=== PATIENT | male | born 1980 | race Caucasian/White ===

== ENCOUNTER 2021-05-31 07:42 | Emergency (ER) | payer SELFPAY ==
[2021-05-31 19:56] LABS: SARS-CoV-2 PCR by NAA Not Detected (NotDetected)
== END 2021-05-31 11:04 | disposition home or self-care (01) ==
LOC: BURERS 07:42
DX: B34.9 Viral infection, unspecified (principal); Z20.822 Contact with and (suspected) exposure to COVID-19
CPT/HCPCS: 87804; J7620; U0003; U0005

== ENCOUNTER 2021-11-26 13:37 | Emergency (ER) | payer SELFPAY ==
[2021-11-26 14:13] LABS: #Basophils 0.1 thou/uL (0.0-0.2); #Lymphocytes 2.3 thou/uL (1.20-3.40); #Neutrophils 10.2 thou/uL (1.40-6.50); %Basophils 0.9 % (0.0-1.0); %Eosinophils 0.2 % (0.0-10.0); %Lymphocytes 16.8 % (21.0-51.0); %Neutrophils 75.2 % (42.0-75.0); Hemoglobin 16.4 g/dL (14.0-18.0); Mean Corpuscular HGB CONC 35.1 g/dL (32.0-36.0); Mean Corpuscular Hemoglobin 27.5 pg (27.0-31.0); Mean Corpuscular Volume 78.3 fL (78.0-98.0); Mean Platelet Volume 6.7 fL (7.4-10.4); Platelet Count 409 thou/uL (130-400); Red Blood Cell (RBC) Count 5.97 mill/uL (4.70-6.10); White Blood Cell (WBC) Count 13.6 thou/uL (4.8-10.8)
[2021-11-26 14:25] LABS: ALT (SGPT) 18 U/L (8-55); AST (SGOT) 17 U/L (5-34); Albumin 4.7 g/dL (3.5-5.0); Alkaline Phosphatase 82 U/L (40-110); Anion Gap 14 mmol/L (10-20); BUN (Urea Nitrogen) 16 mg/dL (8.9-20.6); Bilirubin, Total 0.6 mg/dL (0.2-1.2); CK (CPK) 139 U/L (30-200); Calc. Creatinine Clearance 0 mL/min (70-130); Calcium 9.7 mg/dL (7.8-10.44); Carbon Dioxide 24 mmol/L (22-29); Chloride 98 mmol/L (98-107); Estimated GFR 41; Globulin 3.9 g/dL (2.4-3.5); Glucose 108 mg/dL (70-105); Lipase 19 U/L (8-78); Potassium 4.3 mmol/L (3.5-5.1); Protein, Total 8.6 g/dL (6.0-8.3); Sodium 132 mmol/L (136-145)
[2021-11-26 15:51] LABS: Troponin I Less than 0.010 ng/mL (< 0.028)
== END 2021-11-26 16:09 | disposition home or self-care (01) ==
LOC: BURERS 13:37
DX: T67.2XXA Heat cramp, initial encounter (principal); F17.210 Nicotine dependence, cigarettes, uncomplicated
CPT/HCPCS: 36415; 71045; 80053; 82550; 83690; 84484; 85025; 93005; 94760; 96360

== ENCOUNTER 2022-01-06 14:45 | Emergency (ER) | payer SELFPAY | END 2022-01-06 16:14 | disposition home or self-care (01) | LOC: BURERS 14:45 | DX: U07.1 COVID-19 (principal); F17.210 Nicotine dependence, cigarettes, uncomplicated | CPT/HCPCS: 87804; 99283; U0003; U0005 ==